=== PATIENT | male | born 1945 ===

== ENCOUNTER 2024-06-24 05:57 | Day surgery (SDC) | payer OTHER ==
[2024-06-19 08:30] LABS: URINE APPEARANCE Clear; URINE BILIRRUBIN Negative (NEGATIVE); URINE BLOOD Negative; URINE COLOR Yellow; URINE GLUCOSE Negative (NEGATIVE); URINE KETONE Negative (NEGATIVE); URINE LEUKOCYTE Negative; URINE NITRATE Negative; URINE PROTEIN Negative (NEGATIVE); URINE UROBILINOGEN 0.2 E.U./dl
[2024-06-19 08:31] LABS: HEMATOCRIT 45.4 % (39.0-48.0); HEMOGLOBIN 15.6 g/dL (13-16.00); MEAN CELL VOLUME 80.9 fL (80.0-100.00); MEAN CORPUSCULAR HEMOGLOBIN 27.8 pg (27.00-32.0); MEAN CORPUSCULAR HGB CONC 34.4 g/dl (32.0-36.0); PLATELET COUNT 244 K/uL (150-450); RED BLOOD COUNT 5.61 M/uL (4.00-6.00); RED CELL DISTRIBUTION WIDTH 15.8 % (11.5-14.5)
[2024-06-19 08:32] LABS: URINE BACTERIA 8.5 uL (0.0-1933)
[2024-06-19 08:33] LABS: URINE EPITHELIAL CELLS 1.2 uL (0.0-38.8); URINE RBC 1.3 uL (0.0-20.8); URINE WBC 1.4 uL (0.0-23.2)
[2024-06-19 08:40] VITALS: BP 159/90
[2024-06-19 08:49] LABS: INR 1.07; PARTIAL THROMBOPLASTIN TIME 28.7 SECONDS (22.0-34.0); PROTHROMBIN TIME 11.6 SECONDS (9.0-11.5)
[2024-06-19 09:28] LABS: CALCIUM 10.1 mg/dL (8.5-10.1); CREATININE SERUM 0.9 mg/dL (0.70-1.30); GFR 81.82; POTASSIUM 4.24 mEq/L (3.5-5.1)
[~2024-06-24] VITALS: Ht 170.2 cm; Wt 83.9 kg
[~2024-06-24 05:57] MED LIST: SYNTHROID50 MCG PO
[2024-06-24] MEDS ORDERED: METRONIDAZOLE/SODIUM CHLORIDE 500 MG/100 ML PIGGYBACK IV ONE (09:40)
[2024-06-24] MEDS ORDERED: CEFTRIAXONE SODIUM 2,000 MG VIAL ONE (09:40)
[2024-06-24] MEDS ORDERED: BUPIVACAINE HCL/MPF 0.5% 30ML VIAL ONE (09:40)
[2024-06-24] MEDS ORDERED: ENOXAPARIN SODIUM 40 MG/0.4 ML SYRINGE SUBCUTANEO ONE (09:40)
[2024-06-24] MEDS ORDERED: SUGAMMADEX SODIUM 200 MG/2 ML VIAL IV ONE (11:43)
[2024-06-24] MEDS ORDERED: PERCOCET 5-3251 EACH PO (12:29)
[2024-06-24] MEDS ORDERED: POLY119PG PO (12:29)
[2024-06-24] MEDS ORDERED: CELEBREX200MG PO (12:29)
[2024-06-24] MEDS ORDERED: NEURONTIN300 MG PO (12:29)
== END 2024-06-24 16:15 | disposition home or self-care (01) ==
LOC: CIR.AMB 05:57
PROVIDERS: ATTEND Surgery
DX: K40.91 Unilateral inguinal hernia, without obstruction or gangrene, recurrent (principal); E03.8 Other specified hypothyroidism
CPT/HCPCS: 49651; C1781